=== PATIENT | male | born 1970 | race Caucasian/White ===

== ENCOUNTER 2017-04-23 10:22 | Emergency (ER) | payer OTHER ==
[~2017-04-23] VITALS: Ht 177.8 cm; Wt 115.7 kg
[~2017-04-23 10:22] MED LIST: LEVAQUIN750 MG PO; NORCO 5/325 TAB1 TAB PO
[2017-04-23] MEDS ORDERED: HYDROCHLOROTHIA25 M1 PO (10:39)
[2017-04-23] MEDS ORDERED: COZAAR25 M1 PO (10:39)
[2017-04-23] MEDS ORDERED: COZAAR50 M1 PO (10:40)
== END 2017-04-23 11:50 ==
LOC: EDMED 10:22
PROC: 0S993ZZ Drainage of Right Hip Joint, Percutaneous Approach (ICD-10-PCS; principal; 2017-04-23)
DX: M70.61 Trochanteric bursitis, right hip (principal); K21.9 Gastro-esophageal reflux disease without esophagitis; Z79.899 Other long term (current) drug therapy
CPT/HCPCS: J1040